=== PATIENT | female | born 1950 ===

== ENCOUNTER 2017-03-16 06:37 | Day surgery (SDC) | payer BC ==
[2017-03-10 07:25] VITALS: BMI 26.8
[2017-03-16] MEDS ORDERED: Sodium Chloride 0.9% 1,000 ML IV SCH (09:45)
[2017-03-16] MEDS ORDERED: Propofol 10 mg/ml Inj (20 ML) ONE (09:48)
[2017-03-16] MEDS ORDERED: Lidocaine 1% Inj (20ml) ONE (09:48)
[2017-03-16 12:05] VITALS: RESP 18
[2017-03-16 12:25] VITALS: BP 113/65; PULSE 66; TEMP 97.6; O2SAT 98
== END 2017-03-16 12:45 | disposition home or self-care (01) ==
LOC: ENDO 06:37
PROVIDERS: ATTEND Internal Medicine
DX: K63.5 Polyp of colon (principal); K57.30 Diverticulosis of large intestine without perforation or abscess without bleeding; K62.1 Rectal polyp; K29.70 Gastritis, unspecified, without bleeding; K64.8 Other hemorrhoids
CPT/HCPCS: 43239; 45380; 88305; 88312; 88342; J2704; J3010; J7040 ×2

== ENCOUNTER 2017-07-06 14:24 | Emergency (ER) | payer OTHER, BC ==
[2017-07-06 14:24] VITALS: BMI 26.8
[2017-07-06 14:41] VITALS: TEMP 98.3
--- NOTE | 2017-07-06 14:57 | ED PDOC ---
Arrival/HPI - General Chief Complaint: Trauma Time Seen by Provider: 07/06/17 14:49 Historian: Patient - History of Present Illness Time/Duration: Other (This morning) Symptom Onset: Sudden Symptom Course: Unchanged Quality: Aching Severity Level: Mild Associated Symptoms (Text): 07/06/17 14:55 Patient was sitting on a chair and the chair rolled out from under her and she fell injuring her lower back. No numbness tingling or paresthesias. Able to ambulate with no difficulty. No other trauma. She is refusing pain medication. Past Medical History - Infectious Disease Hx of Infectious Diseases: None - Tetanus Immunization Tetanus Immunization: Unknown - Reproductive Menopause: Yes - Cardiac Hx Hypertension: Yes Hx Pacemaker: No - Pulmonary Hx Asthma: Yes Hx Bronchitis: Yes - Neurological Hx Paralysis: No - Hematological/Oncological Hx Blood Transfusions: No Hx Blood Transfusion Reaction: No - Musculoskeletal/Rheumatological Hx Musculoskeletal Disorders: No - Psychiatric Hx Emotional Abuse: No Hx Physical Abuse: No Hx Substance Use: No - Surgical History Hx Mastectomy: Yes (Bilateral breasts with reconstructive surgery and implants) Hx Tubal Ligation: Yes - Anesthesia Hx Anesthesia Reactions: Yes (BRADYCARDIA) Hx Malignant Hyperthermia: No - Suicidal Assessment Feels Threatened In Home Enviroment: No Family/Social History - Physician Review Nursing Documentation Reviewed: Yes Family/Social History: Unknown Family HX Smoking Status: Never Smoked Hx Alcohol Use: No Hx Substance Use: No Hx Substance Use Treatment: No Allergies/Home Meds Allergies/Adverse Reactions: Allergies No Known Allergies Allergy (Verified 03/04/12 11:48) Home Medications: Home Meds Medication Instructions Recorded Confirmed Aspirin [Low Dose Aspirin EC] 1 tab PO DAILY 03/16/17 03/16/17 Ezetimibe/Simvastatin [Vytorin 1 tab PO DAILY 03/16/17 03/16/17 10-10 mg Tablet] Hydrochlorothiazide [Microzide] 1 tab PO DAILY 03/16/17 03/16/17 Review of Systems - Physician Review All systems were reviewed & negative as marked: Yes Physical Exam Vital Signs Temp Pulse Resp BP Pulse Ox 07/06/17 14:37 98.3 F 72 18 123/83 99 Temperature: Afebrile Blood Pressure: Normal Pulse: Regular Respiratory Rate: Normal Appearance: Positive for: Well-Appearing, Non-Toxic, Uncomfortable Pain Distress: Mild Mental Status: Positive for: Alert and Oriented X 3 - Systems Exam Neck: Present: Normal Range of Motion Back: Present: Normal Inspection, Paraspinal Tenderness (Right lumbar paraspinous tenderness). No: CVA Tenderness, Midline Tenderness, Pain with Leg Raise Upper Extremity: Present: Normal Inspection. No: Cyanosis, Edema Lower Extremity: Present: Normal Inspection. No: Edema Neurological: Present: GCS=15, CN II-XII Intact, Speech Normal, Motor Func Grossly Intact Skin: Present: Warm, Dry, Normal Color. No: Rashes Medical Decision Making - RAD Interpretation Radiology Orders: 07/06/17 14:55 LS SPINE WITH OBL > 18 YRS OLD [RAD] Stat Lumbosacral spine as read by the radiologist shows no fracture or dislocation Machine Set Up: Radiologist Disposition/Present on Arrival - Present on Arrival Any Indicators Present on Arrival: No History of DVT/PE: No History of Uncontrolled Diabetes: No Urinary Catheter: No History of Decub. Ulcer: No History Surgical Site Infection Following: None - Disposition Have Diagnosis and Disposition been Completed?: Yes Diagnosis: Contusion, back Disposition: HOME/ ROUTINE Disposition Time: 15:42 Patient Plan: Discharge Condition: GOOD Discharge Instructions (ExitCare): Acute Low Back Pain (ED) Additional Instructions: Rest and ice. Follow up with employee health. Follow-up in the ER as needed. Tylenol or Advil as directed on bottle as needed. Forms: [employer] (Maori)
--- NOTE | 2017-07-06 15:32 | RAD ---
PROCEDURE: Radiographs of the Lumbar Spine. HISTORY: trauma COMPARISON: No prior. FINDINGS: BONES: Normal alignment. No listhesis. No fracture. DISC SPACES: Unremarkable. OTHER FINDINGS: None. IMPRESSION: Unremarkable radiographs of the lumbar spine.
[2017-07-06 15:53] VITALS: BP 125/82; PULSE 70; RESP 17; O2SAT 100
== END 2017-07-06 15:53 | disposition home or self-care (01) ==
LOC: ED 14:24
DX: S30.0XXA Contusion of lower back and pelvis, initial encounter (principal); W07.XXXA Fall from chair, initial encounter; I10 Essential (primary) hypertension; Z98.51 Tubal ligation status

== ENCOUNTER 2017-11-25 20:59 | Emergency (ER) | payer BC, MEDICARE ==
[2017-11-25 21:00] VITALS: BMI 27.6
[2017-11-25 21:09] VITALS: O2SAT 98
--- NOTE | 2017-11-25 21:39 | ED PDOC ---
Arrival/HPI - General Chief Complaint: Shortness Of Breath Time Seen by Provider: 11/25/17 21:01 Historian: Patient - History of Present Illness Narrative History of Present Illness (Text): 11/25/17 21:34 This 67 yo female with pmh htn, hyperlipidemia, asthma, bronchitis, presents to this ED c/o cough, and wheezing x 2 weeks. Patient stated patient was seen by her pmd 10 days ago. She took Levaquin for 5 days, and nebulizer. Patient stated cough persisted, and worsen today. Patient also stated she felt wheezing last night. Patient feels chills. Patient denies cp, hemoptysis, neck pain, neck stiffness, sick contact, recent travel, skin rash, hemoptysis, vaginal bleeding, vaginal discharge, or urinary symptoms. Time/Duration: Other (see hpi) Context: Home Past Medical History - Provider Review Nursing Documentation Reviewed: Yes - Infectious Disease Hx of Infectious Diseases: None - Tetanus Immunization Tetanus Immunization: Unknown - Cardiac Hx Hypertension: Yes - Pulmonary Hx Asthma: Yes Hx Bronchitis: Yes - Neurological Hx Paralysis: No - Hematological/Oncological Hx Blood Transfusions: No Hx Blood Transfusion Reaction: No - Musculoskeletal/Rheumatological Hx Musculoskeletal Disorders: No - Psychiatric Hx Emotional Abuse: No Hx Physical Abuse: No Hx Substance Use: No - Surgical History Hx Mastectomy: Yes (Bilateral breasts with reconstructive surgery and implants) Hx Tubal Ligation: Yes - Anesthesia Hx Anesthesia: Yes Hx Anesthesia Reactions: Yes (BRADYCARDIA) Hx Malignant Hyperthermia: No - Suicidal Assessment Feels Threatened In Home Enviroment: No Family/Social History - Physician Review Nursing Documentation Reviewed: Yes Family/Social History: Other (noncontributory) Smoking Status: Never Smoked Hx Alcohol Use: No Hx Substance Use: No Hx Substance Use Treatment: No Allergies/Home Meds Allergies/Adverse Reactions: Allergies No Known Allergies Allergy (Verified 11/25/17 21:09) Home Medications: Home Meds Medication Instructions Recorded Confirmed Ezetimibe/Simvastatin [Vytorin 1 tab PO DAILY 03/16/17 08/25/17 10-10 mg Tablet] Hydrochlorothiazide [Microzide] 1 tab PO DAILY 03/16/17 08/25/17 Review of Systems - Review of Systems Constitutional: Normal. absent: Fatigue, Weight Change, Fevers Eyes: Normal ENT: Normal Respiratory: SOB, Cough, Wheezing. absent: Sputum Cardiovascular: Normal. absent: Chest Pain, Palpitations Gastrointestinal: Normal. absent: Abdominal Pain, Nausea, Vomiting Genitourinary Female: Normal. absent: Dysuria, Frequency, Hematuria Musculoskeletal: Normal Skin: Normal. absent: Rash Neurological: Normal. absent: Headache, Dizziness, Focal Weakness, Gait Changes , Speech Changes, Facial Droop, Disequilibrium, Seizure Endocrine: Normal Hemo/Lymphatic: Normal Psychiatric: Normal Physical Exam Vital Signs Temp Pulse Resp BP Pulse Ox 11/25/17 21:20 18 11/25/17 21:12 98.5 F 11/25/17 21:08 108 H 18 146/77 98 Temperature: Afebrile Blood Pressure: Normal Pulse: Regular Respiratory Rate: Normal Appearance: Positive for: Well-Appearing, Non-Toxic, Comfortable Pain Distress: None Mental Status: Positive for: Alert and Oriented X 3 - Systems Exam Head: Present: Atraumatic, Normocephalic Pupils: Present: PERRL Extroacular Muscles: Present: EOMI Conjunctiva: Present: Normal Mouth: Present: Moist Mucous Membranes Neck: Present: Normal Range of Motion Respiratory/Chest: Present: Good Air Exchange, Wheezes, Rhonchi. No: Respiratory Distress, Accessory Muscle Use, Decreased Breath Sounds, Rales, Retracting, Tachypneic, Tender to Palpation Cardiovascular: Present: Regular Rate and Rhythm, Normal S1, S2. No: Murmurs Abdomen: No: Tenderness, Distention, Peritoneal Signs Back: Present: Normal Inspection. No: CVA Tenderness Upper Extremity: Present: Normal Inspection, Normal ROM. No: Cyanosis, Edema Lower Extremity: Present: Normal Inspection, Normal ROM. No: Edema Neurological: Present: GCS=15, CN II-XII Intact, Speech Normal, Motor Func Grossly Intact, Normal Sensory Function, Normal Cerebellar Funct, Gait Normal Skin: Present: Warm, Dry, Normal Color. No: Rashes Psychiatric: Present: Alert, Oriented x 3, Normal Insight, Normal Concentration Medical Decision Making ED Course and Treatment: 11/25/17 23:41 Re-evaluation. Patient feels better. Discussed results and plan with patient who expresses understanding. All questions answered and there is agreement with the plan to discharge home with instructions. Patient stable for discharge. Return if symptoms persist or worsen. I reviewed with patient the risk of using Prednisone and/or Solumedrol including AVN, glaucoma, diabetes, osteoporosis. Patient understood risk, and patient agreed to have this medication. Re-evaluation Time: 23:41 Reassessment Condition: Re-examined, Improved - Lab Interpretations Lab Results: 11/25/17 21:53 11/25/17 21:53 Lab Results 11/25/17 23:01: Urine Color Yellow, Urine Appearance Clear, Urine pH 7.0, Ur Specific Mclean 1.015, Urine Protein Negative, Urine Glucose (UA) Negative, Urine Ketones Negative, Urine Blood Negative, Urine Nitrate Negative, Urine Bilirubin Negative, Urine Urobilinogen 0.2, Ur Leukocyte Esterase Small H, Urine RBC 0 - 2, Urine WBC 5 - 10, Ur Epithelial Cells 0 - 2, Urine Bacteria Rare 11/25/17 22:30: Influenza Typ A,B (EIA) Negative for flu a/b 11/25/17 21:53: Sodium 140, Potassium 3.5 L, Chloride 100, Carbon Dioxide 31, Anion Gap 13, BUN 24 H, Creatinine 0.7, Est GFR ( Amer) > 60, Est GFR ( Non-Af Amer) > 60, Random Glucose 121 H, Calcium 9.1, Total Bilirubin 0.9, AST 33, ALT 42, Alkaline Phosphatase 55, Total Protein 7.6, Albumin 4.5, Globulin 3.1, Albumin/Globulin Ratio 1.5 11/25/17 21:53: WBC 14.6 H D, RBC 4.42, Hgb 14.1, Hct 40.9, MCV 92.5, MCH 31.9, MCHC 34.5, RDW 12.9, Plt Count 222, MPV 9.2, Gran % 80.6 H, Lymph % (Auto) 14.9 L, Bullock % (Auto) 4.2, Eos % (Auto) 0.2 L, Baso % (Auto) 0.1, Gran # 11.77 H, Lymph # (Auto) 2.2, Bullock # (Auto) 0.6, Eos # (Auto) 0.0, Baso # (Auto) 0.02 I have reviewed the lab results: Yes Interpretation: Abnormal lab values - RAD Interpretation Narrative RAD Interpretations (Text): 11/25/17 23:42 CHEST PORTABLE Exam Date: 11/25/17 This imaging exam was performed at [facility] EXAM: XR Chest, 1 View CLINICAL HISTORY: 67 years old, female; Signs and symptoms; Cough and shortness of breath; Symptoms not specified TECHNIQUE: Frontal view of the chest. COMPARISON: CR - CHEST PORTABLE 2015-06-21 07:35 FINDINGS: Lungs: Unremarkable. No consolidation. Pleural space: Unremarkable. No pneumothorax. Heart: Unremarkable. No cardiomegaly. Mediastinum: Unremarkable. Bones/joints: Unremarkable. IMPRESSION: No acute findings. Radiology Orders: 11/25/17 21:32 CHEST PORTABLE [RAD] Stat - Medication Orders Current Medication Orders: Discontinued Medications Albuterol/Ipratropium (Duoneb 3 Mg/0.5 Mg (3 Ml) Ud) 3 ml IH Q15M LAURENCE Stop: 11/25/17 22:16 Last Admin: 11/25/17 21:47 Dose: 3 ml Methylprednisolone (Solu-Medrol) 125 mg IVP STAT STA Stop: 11/25/17 21:33 Last Admin: 11/25/17 21:47 Dose: 125 mg IVP Administration Document 11/25/17 21:47 IT (Rec: 11/25/17 21:47 IT [id number]) Charges for Administration # of IVP Administrations 1 Disposition/Present on Arrival - Present on Arrival Any Indicators Present on Arrival: No History of DVT/PE: No History of Uncontrolled Diabetes: No Urinary Catheter: No History of Decub. Ulcer: No History Surgical Site Infection Following: None - Disposition Have Diagnosis and Disposition been Completed?: Yes Diagnosis: Asthma exacerbation, Acute cystitis Disposition: HOME/ ROUTINE Disposition Time: 23:43 Patient Plan: Discharge Condition: GOOD Discharge Instructions (ExitCare): Acute Cystitis (DC), Asthma, Adult (DC) Additional Instructions: Call private doctor for follow up visit in 1-2 days. Take medication as instructed with food. Return to emergency if symptom worsen. Continue with home Albuterol. Review urine culture report with your doctor in 2-[address] operate machinery if you take cough medication for at least 12 hours. Prescriptions: Amoxicillin/Clavulanate [Augmentin 875 MG-125 MG] 1 tab PO BID #14 tab Prednisone [Deltasone] 40 mg PO DAILY #6 tablet Promethazine [Phenergan Syrup] 6.25 mg PO Q4H PRN #120 ml PRN Reason: Cough And Congestion Referrals: Fadia Pace MD [Primary Care Provider] - Follow up with primary Forms: [employer] (Cape Verdean), WORK NOTE
[2017-11-25] MEDS: Albuterol-Ipratrop 3 mg / 0.5 (3 ml) UD IH SCH ×3 (21:47→22:10)
[2017-11-25 22:06] LABS: BASO # 0.02 K/mm3 (0.0-2.0); BASO % 0.1 % (0.0-3.0); EOS % 0.2 % (1.5-5.0); GRAN # 11.77 (1.4-6.5); GRAN % 80.6 % (50.0-68.0); HEMOGLOBIN 14.1 g/dL (12.0-16.0); LYMPH # 2.2 (1.2-3.4); LYMPH % 14.9 % (22.0-35.0); MEAN CELL VOLUME 92.5 fl (80.0-105.0); MEAN CORPUSCULAR HEMOGLOBIN 31.9 pg (25.0-35.0); MEAN CORPUSCULAR HGB CONC 34.5 g/dl (31.0-37.0); MEAN PLATELET VOLUME 9.2 fl (7.0-11.0); MONO # 0.6 (0.1-0.6); MONO % 4.2 % (1.0-6.0); RBC 4.42 10^6/uL (3.5-6.1); RED CELL DISTRIBUTION WIDTH 12.9 % (11.5-14.5); WHITE BLOOD COUNT 14.6 10^3/ul (4.5-11.0)
[2017-11-25 22:12] LABS: ALB/GLOB RATIO 1.5 (1.1-1.8); ALBUMIN 4.5 g/dL (3.0-4.8); ALT/SGPT 42 U/L (7-56); AST/SGOT 33 U/L (14-36); BLOOD UREA NITROGEN 24 mg/dL (7-21); CALCIUM 9.1 mg/dL (8.4-10.5); GFR AFRICAN-AMERICAN > 60; GFR NON-AFRICAN AMERICAN > 60
--- NOTE | 2017-11-25 22:58 | RAD ---
EXAM: XR Chest, 1 View CLINICAL HISTORY: 67 years old, female; Signs and symptoms; Cough and shortness of breath; Symptoms not specified TECHNIQUE: Frontal view of the chest. COMPARISON: CR - CHEST PORTABLE 2015-06-21 07:35 FINDINGS: Lungs: Unremarkable. No consolidation. Pleural space: Unremarkable. No pneumothorax. Heart: Unremarkable. No cardiomegaly. Mediastinum: Unremarkable. Bones/joints: Unremarkable. IMPRESSION: No acute findings.
[2017-11-25 23:08] LABS: URINE BILIRUBIN NEGATIVE (NEGATIVE); URINE BLOOD NEGATIVE (NEGATIVE); URINE GLUCOSE (UA) NEGATIVE (NEGATIVE); URINE LEUKOCYTE ESTERASE SMALL Leu/uL (NEGATIVE); URINE PROTEIN NEGATIVE mg/dL (<30 mg/dL); URINE UROBILINOGEN 0.2 E.U./dL (<1 E.U./dL)
[2017-11-25 23:25] LABS: URINE APPEARANCE CLEAR (CLEAR); URINE COLOR YELLOW (YELLOW)
[2017-11-25 23:36] LABS: URINE BACTERIA RARE (NEG); URINE EPITHELIAL CELLS 0 - 2 /hpf (0-5); URINE RBC 0 - 2 /hpf (0-2)
[2017-11-25] MEDS ORDERED: Amoxicillin-Clav 875-125 mg Tab PO STA (23:40)
[2017-11-26 00:18] VITALS: BP 130/72; PULSE 89; RESP 17; TEMP 98.1
--- NOTE | 2017-11-26 13:53 | CARD ---
APPROVED REPORT EKG Measurement Heart [id number] <Conclusion> Sinus tachycardia Possible Left atrial enlargement Borderline ECG
== END 2017-11-25 23:52 | disposition home or self-care (01) ==
LOC: ED 20:59
DX: J45.901 Unspecified asthma with (acute) exacerbation (principal); N30.00 Acute cystitis without hematuria; I10 Essential (primary) hypertension
CPT/HCPCS: 71045; 80053; 81001; 85025; 87086; 87804; 93005; 96374; 99284; J2930

== ENCOUNTER 2018-06-25 11:21 | Emergency (ER) | payer BC, MEDICARE, OTHER ==
[2018-06-25 11:43] VITALS: BMI 26.4
--- NOTE | 2018-06-25 11:45 | ED PDOC ---
Arrival/HPI - General Time Seen by Provider: 06/25/18 11:25 Historian: Patient - History of Present Illness Narrative History of Present Illness (Text): 06/25/18 11:45 67 year old female, whose past medical history includes hypertension, hyperlipidemia, asthma, and bronchitis, presents to the emergency department complaining of left ankle/foot pain s/p twisting foot while walking up the stair 1-2 hours ago. Patient states she fell down hitting her chin. Patient denies any LOC, chest pain, shortness of breath, abdominal pain, back pain, neck pain, headache, dizziness, or any other complaint. PMD: Dr. Pace Time/Duration: Other (1-2 hours) Symptom Onset: Sudden Symptom Course: Unchanged Activities at Onset: Light Context: Walking, Tripped Past Medical History - Provider Review Nursing Documentation Reviewed: Yes - Infectious Disease Hx of Infectious Diseases: None - Tetanus Immunization Tetanus Immunization: Unknown - Cardiac Hx Hypertension: Yes - Pulmonary Hx Asthma: Yes Hx Bronchitis: Yes - Neurological Hx Paralysis: No - Hematological/Oncological Hx Blood Transfusions: No Hx Blood Transfusion Reaction: No - Musculoskeletal/Rheumatological Hx Musculoskeletal Disorders: No - Psychiatric Hx Emotional Abuse: No Hx Physical Abuse: No Hx Substance Use: No - Surgical History Hx Mastectomy: Yes (Bilateral breasts with reconstructive surgery and implants) Hx Tubal Ligation: Yes - Anesthesia Hx Anesthesia: Yes Hx Anesthesia Reactions: Yes (BRADYCARDIA) Hx Malignant Hyperthermia: No - Suicidal Assessment Feels Threatened In Home Enviroment: No Family/Social History - Physician Review Nursing Documentation Reviewed: Yes Family/Social History: No Known Family HX Smoking Status: Never Smoked Hx Alcohol Use: No Hx Substance Use: No Hx Substance Use Treatment: No Allergies/Home Meds Allergies/Adverse Reactions: Allergies No Known Allergies Allergy (Verified 06/25/18 11:43) Home Medications: Home Meds Medication Instructions Recorded Confirmed Ezetimibe/Simvastatin [Vytorin 1 tab PO DAILY 03/16/17 08/25/17 10-10 mg Tablet] Hydrochlorothiazide [Microzide] 1 tab PO DAILY 03/16/17 08/25/17 Review of Systems - Physician Review All systems were reviewed & negative as marked: Yes - Review of Systems Gastrointestinal: Abdominal Pain Musculoskeletal: Other (left ankle pain). absent: Back Pain, Neck Pain Neurological: absent: Headache, Dizziness, Other (LOC) Physical Exam Vital Signs Reviewed: Yes Appearance: Positive for: Well-Appearing, Non-Toxic, Comfortable Pain Distress: None Mental Status: Positive for: Alert and Oriented X 3 - Systems Exam Head: Present: Atraumatic, Normocephalic, Ecchymosis ((+)little ecchymosis to the chin (-) No Step off), Other (Good enlightment of teeth. Moving [place] without discomfort. ) Pupils: Present: PERRL Extroacular Muscles: Present: EOMI Conjunctiva: Present: Normal Mouth: Present: Moist Mucous Membranes Neck: Present: Normal Range of Motion Respiratory/Chest: Present: Clear to Auscultation, Good Air Exchange. No: Respiratory Distress, Accessory Muscle Use Cardiovascular: Present: Regular Rate and Rhythm, Normal S1, S2. No: Murmurs Abdomen: No: Tenderness, Distention, Peritoneal Signs Back: Present: Normal Inspection Upper Extremity: Present: Normal Inspection. No: Cyanosis, Edema Lower Extremity: Present: NORMAL PULSES, Normal ROM, Tenderness (Tenderness to the medial aspect of left foot), Capillary Refill < 2 s. No: Edema Neurological: Present: GCS=15, CN II-XII Intact, Speech Normal Skin: Present: Warm, Dry, Normal Color. No: Rashes Psychiatric: Present: Alert, Oriented x 3, Normal Insight, Normal Concentration Medical Decision Making ED Course and Treatment: 06/25/18 11:45 Impression: 67 year old female presents complaining of left ankle/foot pain s/p twisting her foot walking up the stairs 1-2 hours ago. Plan: -- Ankle Left X-ray 3V -- Left Foot X-ray 3V -- Reassess and disposition Progress Notes: PROCEDURE: Left ankle radiographs Dictator : Jesi Soriano MD Report Date : 06/25/2018 13:04:24 IMPRESSION: Soft tissue swelling. No acute displaced fracture, dislocation, or significant joint effusion identified. If symptoms persist or if there is clinical concern, x-ray follow-up in 7-10 d ays should be considered. PROCEDURE: Left ankle radiographs Dictator : Jesi Soriano MD Report Date : 06/25/2018 13:04:24 IMPRESSION: Soft tissue swelling. No acute displaced fracture, dislocation, or significant joint effusion identified. If symptoms persist or if there is clinical concern, x-ray follow-up in 7-10 days should be considered. 06/25/18 13:25 On re-evaluation, is in no acute distress. I have discussed the results and plan with the patient, who expresses understanding. Patient in agreement with plan to be discharged home. Patient is stable for discharge. Patient was instructed to follow up with physician or return if symptoms worsen or new concerning symptoms arise. - RAD Interpretation Supervisor Felling Bucking: Radiologist - Scribe Statement The provider has reviewed the documentation as recorded by the Hueyibizzy Freeman Provider Scribe Attestation: All medical record entries made by the Scribe were at my direction and personally dictated by me. I have reviewed the chart and agree that the record accurately reflects my personal performance of the history, physical exam, medical decision making, and the department course for this patient. I have also personally directed, reviewed, and agree with the discharge instructions and disposition. Disposition/Present on Arrival - Present on Arrival Any Indicators Present on Arrival: No History of DVT/PE: No History of Uncontrolled Diabetes: No Urinary Catheter: No History Surgical Site Infection Following: None - Disposition Have Diagnosis and Disposition been Completed?: Yes Diagnosis: Ankle sprain Disposition: HOME/ ROUTINE Disposition Time: 12:30 Condition: GOOD Discharge Instructions (ExitCare): Ankle Sprain (DC) Additional Instructions: MARCE TAPIA, thank you for letting us take care of you today. The emergency medical care you received today was directed at your acute symptoms. If you were prescribed any medication, please fill it and take as directed. It may take several days for your symptoms to resolve. Return to the Emergency Department if your symptoms worsen, do not improve, or if you have any other problems. Please contact your doctor or call one of the physicians/clinics you have been referred to that are listed on the Patient Visit Information form that is included in your discharge packet. Bring any paperwork you were given at discharge with you along with any medications you are taking to your follow up visit. Our treatment cannot replace ongoing medical care by a primary care provider outside of the emergency department. Thank you for allowing the [facility] team to be part of your care today. Ice the ankle for the next 2 days. Follow up with your primary care doctor next week for re-evaluation and further management. Prescriptions: Ibuprofen [Motrin] 600 mg PO Q6 PRN #20 tab PRN Reason: Pain, Moderate (4-7) Referrals: [facility], [Non-Staff] - Follow up with primary Forms: [employer] (Andorran), WORK NOTE
--- NOTE | 2018-06-25 13:08 | RAD ---
PROCEDURE: Left ankle radiographs Left foot radiographs HISTORY: r/o fx COMPARISON: None FINDINGS: BONES: No acute displaced fracture. Small calcaneal enthesophyte/heel spur. JOINTS: No dislocation. SOFT TISSUES: Soft tissue swelling. No evidence of radiopaque foreign body. OTHER FINDINGS: None. IMPRESSION: Soft tissue swelling. No acute displaced fracture, dislocation, or significant joint effusion identified. If symptoms persist or if there is clinical concern, x-ray follow-up in 7-10 days should be considered.
[2018-06-25 14:10] VITALS: BP 133/80; RESP 18; TEMP 98
[2018-06-25 14:11] VITALS: PULSE 88; O2SAT 99
== END 2018-06-25 14:10 | disposition home or self-care (01) ==
LOC: ED 11:21
DX: S93.402A Sprain of unspecified ligament of left ankle, initial encounter (principal); X50.1XXA Overexertion from prolonged static or awkward postures, initial encounter; Y93.01 Activity, walking, marching and hiking; I10 Essential (primary) hypertension; E78.5 Hyperlipidemia, unspecified